=== PATIENT | female | born 1970 | race Asian ===

== ENCOUNTER 2019-10-24 10:49 | Emergency (ER) | payer OTHER ==
[~2019-10-24] VITALS: Ht 162.6 cm; Wt 57.6 kg
[2019-10-24 11:04] VITALS: BP 145/74
== END 2019-10-24 11:49 | disposition home or self-care (01) ==
LOC: ER 10:50
DX: J20.9 Acute bronchitis, unspecified (principal); F10.10 Alcohol abuse, uncomplicated; Y90.9 Presence of alcohol in blood, level not specified

== ENCOUNTER 2021-03-31 09:24 | Emergency (ER) | payer OTHER ==
[~2021-03-31] VITALS: Ht 157.5 cm; Wt 57.6 kg
--- NOTE | 2021-03-31 09:48 | NUR ---
C/O LOWER ABD PAIN X 3 DAYS. -N/V/D. PT AAOX4, VSS. RR EVEN & UNLABORED. DENIES CP, SOB, DIZZINESS AT THIS TIME. AWAITING EVAL BY ERMD. WILL CONT TO MONITOR.
[2021-03-31] MEDS ORDERED: IV NS 0.9% 1,000 ML BAG IV ONE (10:00)
[2021-03-31] MEDS ORDERED: ONDANSETRON HCL/PF 4 MG/2 ML VIAL IVP ONE (10:00)
[2021-03-31] MEDS ORDERED: MORPHINE SULFATE INJ 2 MG/ML DISP.SYRIN IV ONE (10:00)
[2021-03-31] MEDS ORDERED: ONDANSETRON HCL/PF 4 MG/2 ML VIAL ONE (10:09)
[2021-03-31] MEDS ORDERED: MORPHINE SULFATE INJ 4 MG/ML DISP.SYRIN ONE (10:09)
[2021-03-31 10:14] LABS: BASOPHILS # (AUTO) 0.1 /CMM (0.0-0.2); MONOCYTES # (AUTO) 0.4 /CMM (0.1-1.30)
--- NOTE | 2021-03-31 10:14 | NUR ---
MEDICATED PER ERMD ORDER, PT JANELLE WELL.
[2021-03-31 10:21] LABS: BILIRUBIN,URINE Negative (NEGATIVE); COLOR,URINE YELLOW (YELLOW); LEUKOCYTE ESTERASE ,URINE Negative (NEGATIVE); NITRITE, URINE Negative (NEGATIVE); PROTEIN,URINE Negative (NEGATIVE); UGLUCOSE Negative (NEGATIVE); UROBILINOGEN,URINE 0.2 EU/dL (0.2)
[2021-03-31 10:22] LABS: BASOPHILS % (AUTO) 0.9 % (0.0-2.0); EOSINOPHILS % (AUTO) 2.6 % (0.0-6.0); HEMATOCRIT 40 % (33-45); HEMOGLOBIN 12.7 g/dL (11.5-14.8); LYMPHOCYTES % (AUTO) 13.9 % (20.0-44.0); MEAN CORPUSCULAR HGB CONC 32 g/dl (31.0-36.0); MEAN CORPUSCULAR VOLUME 67 fL (82-100); MONOCYTES % (AUTO) 6.3 % (2.0-12.0); NEUTROPHILS # (AUTO) 5.4 /CMM (1.8-8.9); NEUTROPHILS % (AUTO) 76.3 % (43.0-81.0); PLATELET COUNT (AUTO) 279 /CMM (150-450); RED BLOOD CELL COUNT(AUTO) 5.94 MIL/uL (4.0-5.2); WHITE BLOOD COUNT (AUTO) 7.1 K/uL (4.3-11.0)
[2021-03-31 10:25] LABS: CALCIUM, SERUM 9.1 mg/dL (8.5-10.1); CREATININE 0.7 mg/dL (0.6-1.3); POTASSIUM 4.2 mmol/L (3.5-5.1)
[2021-03-31 10:31] LABS: ALBUMIN 3.8 g/dL (3.4-5.0); BILIRUBIN,DIRECT 0.1 mg/dL (0.0-0.2); BILIRUBIN,TOTAL 0.4 mg/dL (0.2-1.0); TOTAL PROTEIN, SERUM 8.2 g/dL (6.4-8.2)
[2021-03-31] MEDS ORDERED: IOHEXOL-300 100 ML VIAL IV ONE (11:15)
[2021-03-31] MEDS ORDERED: IV NS 0.9% 250 ML IV ONE (11:16)
[2021-03-31] MEDS ORDERED: CT SWABBABLE VALVE TRANS SET 1 EA INFUS.SET MC ONE (11:16)
[2021-03-31 12:31] VITALS: BP 138/87
--- NOTE | 2021-03-31 12:31 | NUR ---
Patient discharged to home in stable condition. Written and verbal after care instructions given. Patient verbalizes understanding of instruction. IV removed. Catheter intact and site benign. Pressure and 4x4 applied to site. No bleeding noted.
== END 2021-03-31 12:31 | disposition home or self-care (01) ==
LOC: ER 09:27
DX: D25.9 Leiomyoma of uterus, unspecified (principal)
CPT/HCPCS: 36415; 74177; 76856; 80048; 80076; 81003; 83690; 84703; 85025; 96361; 96374; 96375; 99285; J2270; J2405; J7030; J7050; Q9967

== ENCOUNTER 2022-01-29 18:30 | Emergency (ER) | payer OTHER ==
[~2022-01-29] VITALS: Ht 162.6 cm; Wt 59.4 kg
[2022-01-29 18:41] VITALS: BP 138/80
--- NOTE | 2022-01-29 18:43 | NUR ---
COUGH AND SORE THROAT X 1 WEEK. NOW HAVING UPPER BACK PAIN FROM COUGHING. PLACED COMFORTABLY IN BED. VITALS CHECKED
--- NOTE | 2022-01-29 18:45 | NUR ---
SEEN BY DR CAMPBELL AT BEDSIDE
[2022-01-29] MEDS ORDERED: AZIT250T PO (19:01)
--- NOTE | 2022-01-29 19:46 | NUR ---
Patient discharged to home in stable condition. Rx and Written and verbal after care instructions given. Patient verbalizes understanding of instruction.
== END 2022-01-29 19:48 | disposition home or self-care (01) ==
LOC: ER 18:30
DX: J20.9 Acute bronchitis, unspecified (principal); Z79.899 Other long term (current) drug therapy

== ENCOUNTER 2023-02-16 23:37 | Emergency (ER) | payer OTHER ==
[~2023-02-16] VITALS: Ht 154.9 cm; Wt 59.9 kg
[~2023-02-16 23:37] MED LIST: AZIT250T PO
[2023-02-17 00:41] VITALS: BP 136/92
--- NOTE | 2023-02-17 00:41 | NUR ---
BIBFAMILY FROM HOME C/O POLYURIA, DYSURIA, HEMATURIA SINCE 1799. AFEBRILE. PT A/OX4. TOLERATING R/A WELL WITH NO RESP DISTRESS. AMB WITH STEADY GAIT. SAFETY MEASURES IN PLACE.
--- NOTE | 2023-02-17 00:47 | NUR ---
URINE COLLECTED AND SENT TO LAB
[2023-02-17 01:43] LABS: BILIRUBIN,URINE NEGATIVE (NEGATIVE); COLOR,URINE DARK YELLOW (YELLOW); LEUKOCYTE ESTERASE ,URINE TRACE (NEGATIVE); NITRITE, URINE NEGATIVE (NEGATIVE); PROTEIN,URINE NEGATIVE (NEGATIVE); UGLUCOSE NEGATIVE (NEGATIVE); UROBILINOGEN,URINE 0.2 EU/dL (0.2)
[2023-02-17 01:46] LABS: BACTERIA,URINE Rare /HPF (None Seen); RBC,URINE TOO NUMEROUS TO COUN /HPF (0-2); SQUAMOUS EPITHELIAL CELL,UR Few /HPF (None Seen)
[2023-02-17] MEDS ORDERED: NITROFURANTOIN/MONOHYDRATE MACROCRYSTALS 100 MG CAPSULE PO ONE (02:00)
[2023-02-17] MEDS ORDERED: NITR100C6 PO (02:02)
[2023-02-17] MEDS ORDERED: NITROFURANTOIN/MONOHYDRATE MACROCRYSTALS 100 MG CAPSULE ONE (02:06)
--- NOTE | 2023-02-17 02:08 | NUR ---
Patient discharged to home in stable condition. RX Written and verbal after care instructions given. Patient verbalizes understanding of instruction.
== END 2023-02-17 02:11 | disposition home or self-care (01) ==
LOC: ER 23:38
DX: N39.0 Urinary tract infection, site not specified (principal); Z79.899 Other long term (current) drug therapy
CPT/HCPCS: 81001; 84703-TC; 87086-TC

== ENCOUNTER 2025-05-27 15:05 | Emergency (ER) | payer OTHER ==
[~2025-05-27] VITALS: Ht 157.5 cm; Wt 61.2 kg
[~2025-05-27 15:05] MED LIST changes: +BENZ200C53 PO; +NITR100C6 PO
[2025-05-27] MEDS ORDERED: ACETAMINOPHEN ES 500 MG TABLET ONE (15:23)
[2025-05-27] MEDS ORDERED: METOCLOPRAMIDE HCL 10 MG/2 ML VIAL ONE (15:23)
[2025-05-27] MEDS: IV NS 0.9% 1,000 ML BAG IV ONE (15:30)
[2025-05-27] MEDS: ACETAMINOPHEN ES 500 MG TABLET PO ONE (15:38)
[2025-05-27 15:57] LABS: PLATELET COUNT (AUTO) 232 K/uL (150-450); RED BLOOD CELL COUNT(AUTO) 5.94 MIL/uL (4.0-5.2); RED CELL DISTRIBUTION WIDTH 16.7 % (11.5-15.0); WHITE BLOOD COUNT (AUTO) 5.2 K/uL (4.3-11.0)
[2025-05-27 16:13] LABS: CALCIUM, SERUM 9.4 mg/dL (8.5-10.1); CREATININE 0.4 mg/dL (0.6-1.3); SODIUM SERUM 138 mmol/L (136-145); UREA NITROGEN, BLOOD 16 mg/dL (7-18)
[2025-05-27] MEDS: METOCLOPRAMIDE HCL 10 MG/2 ML VIAL IV ONE (16:15)
[2025-05-27 16:19] LABS: ASPARTATE AMINOTRANSFERASE 25 U/L (15-37); TOTAL PROTEIN, SERUM 7.9 g/dL (6.4-8.2)
[2025-05-27] MEDS ORDERED: KETO10TA2 PO (16:39)
[2025-05-27 17:10] VITALS: BP 122/81; TEMP 98.2; O2SAT 95
[2025-05-27 17:27] LABS: EOSINOPHILS % (MANUAL) 3 % (0-4); LYMPHOCYTES % (MANUAL) 12 % (16-48); MONOCYTES % (MANUAL) 5 % (0-11.0); NEUTROPHILS % (MANUAL) 80 (42-76); PLATELET ESTIMATE ADEQUATE
== END 2025-05-27 17:11 | disposition home or self-care (01) ==
LOC: ER 15:10
DX: R51.9 Headache, unspecified (principal); M54.50 Low back pain, unspecified; R20.0 Anesthesia of skin; R07.9 Chest pain, unspecified
CPT/HCPCS: 99285; 96374; 70450; 71045; 96361; 96375; 93005; 85027; 80048; 80076; 85007; 36415; 84484; J1200; J2765; J7030